=== PATIENT | male | born 1955 | race Two or more races ===

== ENCOUNTER 2024-01-29 17:08 | Inpatient (IN) | payer OTHER ==
[~2024-01-29] VITALS: Ht 165.1 cm; Wt 74.2 kg
[2024-01-29] MEDS ORDERED: methylPREDNISolone SOD SUCC 125 MG/2 ML VL IV ONE (18:00)
[2024-01-29] MEDS: IPRATROPIUM BROM 0.5 MG/2.5ML INH SOL NEB ONE (18:08)
[2024-01-29] MEDS: ALBUTEROL SULF 2.5 MG/0.5ML(0.5%) NEB SOLN NEB ONE ×2 (18:08→21:30)
[2024-01-29 18:28] LABS: Hematocrit 38.4 % (41.0-53.0); Hemoglobin 12.8 g/dL (13.5-17.5); Mean Corpuscular Hemoglobin 28.4 pg (28.0-32.0); Mean Corpuscular Hgb Conc. 33.3 g/dL (32.0-36.0); Mean Corpuscular Volume 85.4 fL (80.0-100.0); Red Cell Distribution Width 14.6 % (11.8-14.3); White Blood Cell 7.2 10^3/uL (4.4-10.8)
[2024-01-29 18:34] LABS: Basophils % (manual) 0 (0.0-2.0); Blast Cells 0; Metamyelocytes % 0; Myelocytes % 0; Promyelocytes % 0; Reactive Lymphocytes 0
[2024-01-29 18:51] LABS: Alanine Aminotransferase 23 U/L (7-40); Albumin 4.4 g/dL (3.2-4.8); Alkaline Phosphatase 85 U/L (46-116); Anion Gap 7 (5-15); Aspartate Aminotransferase 19 U/L (13-40); BUN/Creatinine Ratio 9.1 (10.0-20.0); Blood Urea Nitrogen 8 mg/dL (9-23); Calcium 9.6 mg/dL (8.5-10.1); Carbon Dioxide 23 mmol/L (20-30); Chloride 109 mmol/L (98-107); Glucose 98 mg/dL (74-106); Magnesium 2.1 mg/dL (1.6-2.6); Potassium 3.9 mmol/L (3.5-5.1); Sodium 139 mmol/L (136-145)
[2024-01-29 18:52] LABS: Bilirubin, Total 0.5 mg/dL (0.2-1.0); Total Protein 7.2 g/dL (5.7-8.2)
[2024-01-29] MEDS ORDERED: ALBU108A5 IN (20:19)
[2024-01-29] MEDS: methylPREDNISolone SOD SUCC 125 MG/2 ML VL IM ONE (20:21)
[2024-01-29 20:37] LABS: Band Neutrophils % (manual) 2; Lymphocytes % (manual) 21 (10.0-50.0)
[2024-01-29 20:38] LABS: Eosinophils % (manual) 23 (0-7); Monocytes % (manual) 4 (0-12); Platelet Estimate Adequate
[2024-01-29 21:34] LABS: Base Excess -4.4 mmol/L (-2.0-2.0)
[2024-01-29] MEDS ORDERED: ONDANSETRON HCL 4 MG/2 ML VIAL IV PRN (23:30)
[2024-01-29] MEDS ORDERED: MORPHINE SULFATE INJ 2 MG/ml SYRG IV PRN (23:30)
[2024-01-29] MEDS ORDERED: HYDROcodone-ACET 5/325MG TAB PO PRN (23:30)
[2024-01-29] MEDS ORDERED: ACETAMINOPHEN 325 MG TAB PO PRN (23:30)
[2024-01-29] MEDS ORDERED: DOCUSATE SOD 100 MG CAP PO PRN (23:30)
[2024-01-29] MEDS ORDERED: NITROGLYCERIN 0.4 MG SL TAB SL PRN (23:30)
[2024-01-30] VITALS (23 sets, daily range): BP systolic 102–163; BP diastolic 55–95; PULSE 86–104; RESP 16–20; TEMP 97.6–98.1; O2SAT 94–98
[2024-01-30] MEDS: SODIUM CHLORIDE 0.9% 1,000 ML IV SCH (00:41)
[2024-01-30] MEDS: ALBUTEROL SULF 2.5 MG/0.5ML(0.5%) NEB SOLN NEB SCH (01:42)
[2024-01-30] MEDS: IPRATROPIUM BROM 0.5 MG/2.5ML INH SOL NEB SCH (01:42)
[2024-01-30] MEDS ORDERED: hydrALAZINE HCL 20 MG/ML VL IV PRN (01:45)
[2024-01-30] MEDS: BUDESONIDE (INHALATION) 0.5 MG/2 ML NEB NEB SCH (09:24)
[2024-01-30] MEDS: PANTOPRAZOLE 40 MG/10 ML VIAL INJ IV SCH (10:05)
[2024-01-30] MEDS: methylPREDNISolone SOD SUCC 125 MG/2 ML VL IV SCH (10:05)
[2024-01-30] MEDS: ENOXAPARIN SOD 40 MG/0.4 ML SYRINGE SC SCH (10:05)
[2024-01-30 11:59] LABS: Chloride 108 mmol/L (98-107); Potassium 4.6 mmol/L (3.5-5.1); Sodium 138 mmol/L (136-145)
[2024-01-30 12:00] LABS: Anion Gap 6 (5-15); Calcium 9.6 mg/dL (8.5-10.1); Carbon Dioxide 24 mmol/L (20-30)
[2024-01-30 12:05] LABS: BUN/Creatinine Ratio 15.1 (10.0-20.0); Blood Urea Nitrogen 13 mg/dL (9-23); Glucose 179 mg/dL (74-106)
[2024-01-30 12:19] LABS: Basophils # (auto) 0 10 ^3/uL (0-0.2); Basophils % (auto) 0.1 % (0.0-2.0); Eosinophils # (auto) 0 10 ^3/uL (0-0.8); Hematocrit 37.5 % (41.0-53.0); Hemoglobin 12.8 g/dL (13.5-17.5); Lymphocytes # (auto) 0.8 10 ^3/uL (0.4-5.4); Lymphocytes % (auto) 10.1 % (10.0-50.0); Mean Corpuscular Hemoglobin 29.2 pg (28.0-32.0); Mean Corpuscular Hgb Conc. 34.2 g/dL (32.0-36.0); Mean Corpuscular Volume 85.4 fL (80.0-100.0); Monocytes # (auto) 0.1 10 ^3/uL (0-1.3); Monocytes % (auto) 1.7 % (0.0-12.0); Neutrophils # (auto) 6.8 10 ^3/uL (1.6-8.6); Neutrophils % (auto) 88.1 % (37.0-80.0); Red Blood Cells 4.39 10^6/uL (4.5-5.90); Red Cell Distribution Width 14.6 % (11.8-14.3); White Blood Cell 7.7 10^3/uL (4.4-10.8)
[2024-01-31] VITALS (20 sets, daily range): BP systolic 117–132; BP diastolic 76–87; PULSE 81–105; RESP 15–20; TEMP 97.4–98.1; O2SAT 91–100
[2024-01-31 06:00] LABS: Basophils # (auto) 0 10 ^3/uL (0-0.2); Basophils % (auto) 0.1 % (0.0-2.0); Eosinophils # (auto) 0 10 ^3/uL (0-0.8); Hematocrit 35.1 % (41.0-53.0); Hemoglobin 11.8 g/dL (13.5-17.5); Lymphocytes # (auto) 0.8 10 ^3/uL (0.4-5.4); Lymphocytes % (auto) 5.4 % (10.0-50.0); Mean Corpuscular Hemoglobin 28.9 pg (28.0-32.0); Mean Corpuscular Hgb Conc. 33.6 g/dL (32.0-36.0); Monocytes # (auto) 0.4 10 ^3/uL (0-1.3); Monocytes % (auto) 2.7 % (0.0-12.0); Neutrophils # (auto) 13.4 10 ^3/uL (1.6-8.6); Neutrophils % (auto) 91.8 % (37.0-80.0); Red Blood Cells 4.08 10^6/uL (4.5-5.90); Red Cell Distribution Width 14.7 % (11.8-14.3); White Blood Cell 14.6 10^3/uL (4.4-10.8)
[2024-01-31 06:17] LABS: Anion Gap 6 (5-15); Carbon Dioxide 24 mmol/L (20-30); Chloride 110 mmol/L (98-107); Potassium 4.3 mmol/L (3.5-5.1); Sodium 140 mmol/L (136-145)
[2024-01-31 06:18] LABS: Calcium 9.3 mg/dL (8.5-10.1)
[2024-01-31 06:23] LABS: BUN/Creatinine Ratio 15.6 (10.0-20.0); Blood Urea Nitrogen 15 mg/dL (9-23); Glucose 143 mg/dL (74-106)
[2024-01-31] MEDS: methylPREDNISolone SOD SUCC 125 MG/2 ML VL IV SCH (21:42)
[2024-02-01] VITALS (13 sets, daily range): BP systolic 105–137; BP diastolic 5–91; PULSE 60–111; RESP 16–20; TEMP 97.8–98.6; O2SAT 93–100
[2024-02-01 06:47] LABS: Chloride 109 mmol/L (98-107); Potassium 3.9 mmol/L (3.5-5.1); Sodium 139 mmol/L (136-145)
[2024-02-01 06:49] LABS: Anion Gap 4 (5-15); Calcium 9.3 mg/dL (8.5-10.1); Carbon Dioxide 26 mmol/L (20-30)
[2024-02-01 06:54] LABS: BUN/Creatinine Ratio 20.5 (10.0-20.0); Blood Urea Nitrogen 18 mg/dL (9-23); Glucose 141 mg/dL (74-106)
[2024-02-01 07:09] LABS: Basophils # (auto) 0 10 ^3/uL (0-0.2); Basophils % (auto) 0.1 % (0.0-2.0); Eosinophils # (auto) 0 10 ^3/uL (0-0.8); Hematocrit 35.1 % (41.0-53.0); Hemoglobin 11.8 g/dL (13.5-17.5); Lymphocytes # (auto) 0.7 10 ^3/uL (0.4-5.4); Lymphocytes % (auto) 5.6 % (10.0-50.0); Mean Corpuscular Hemoglobin 28.9 pg (28.0-32.0); Mean Corpuscular Hgb Conc. 33.5 g/dL (32.0-36.0); Mean Corpuscular Volume 86.1 fL (80.0-100.0); Monocytes # (auto) 0.3 10 ^3/uL (0-1.3); Monocytes % (auto) 2.5 % (0.0-12.0); Neutrophils # (auto) 10.8 10 ^3/uL (1.6-8.6); Neutrophils % (auto) 91.8 % (37.0-80.0); Red Blood Cells 4.08 10^6/uL (4.5-5.90); Red Cell Distribution Width 14.5 % (11.8-14.3); White Blood Cell 11.7 10^3/uL (4.4-10.8)
[2024-02-01] MEDS ORDERED: ALBU108A5 IN (16:19)
[2024-02-01] MEDS ORDERED: ALBU1NEB5 IN (16:19)
[2024-02-01] MEDS ORDERED: IPRA0.03 (16:19)
[2024-02-01] MEDS ORDERED: METH4PAK PO (16:19)
== END 2024-02-01 17:20 | disposition home or self-care (01) | DRG 189 ==
LOC: ER 17:08 → TELE 23:36 → TELE-E-ADS 01-30 02:11
PROVIDERS: ADMIT Nurse Practitioner Family; ATTEND Internal Medicine
DX: J96.01 Acute respiratory failure with hypoxia (principal); J45.901 Unspecified asthma with (acute) exacerbation; J44.1 Chronic obstructive pulmonary disease with (acute) exacerbation; E87.20 Acidosis, unspecified; T38.0X5A Adverse effect of glucocorticoids and synthetic analogues, initial encounter; Y92.89 Other specified places as the place of occurrence of the external cause; R73.9 Hyperglycemia, unspecified
CPT/HCPCS: 36415; 36600; 71045; 80048; 80053; 82805; 83735; 83880; 84484; 85007; 85025; 85027; 93005; 94640; C9113; G0378

== ENCOUNTER 2024-02-23 22:07 | Observation (INO) | payer OTHER ==
[~2024-02-23] VITALS: Ht 165.1 cm; Wt 72.3 kg
[~2024-02-23 22:07] MED LIST: ALBU108A5 IN; ALBU1NEB5 IN; IPRA0.03; METH4PAK PO
[2024-02-23] MEDS: ALBUTEROL SULF 2.5 MG/0.5ML(0.5%) NEB SOLN NEB ONE (22:33)
[2024-02-23] MEDS: IPRATROPIUM BROM 0.5 MG/2.5ML INH SOL NEB ONE (22:34)
[2024-02-23 22:51] LABS: Hematocrit 38.4 % (41.0-53.0); Hemoglobin 13.3 g/dL (13.5-17.5); Mean Corpuscular Hemoglobin 29.3 pg (28.0-32.0); Mean Corpuscular Hgb Conc. 34.6 g/dL (32.0-36.0); Mean Corpuscular Volume 84.8 fL (80.0-100.0); Red Blood Cells 4.52 10^6/uL (4.5-5.90); Red Cell Distribution Width 14.4 % (11.8-14.3); White Blood Cell 8.9 10^3/uL (4.4-10.8)
[2024-02-23 22:54] LABS: Basophils % (manual) 0 (0.0-2.0); Blast Cells 0; Metamyelocytes % 0; Myelocytes % 0; Promyelocytes % 0; Reactive Lymphocytes 0
[2024-02-23 23:04] LABS: Alanine Aminotransferase 23 U/L (7-40); Albumin 4.4 g/dL (3.2-4.8); Alkaline Phosphatase 86 U/L (46-116); Anion Gap 7 (5-15); Aspartate Aminotransferase 17 U/L (13-40); Bilirubin, Total 0.3 mg/dL (0.2-1.0); Blood Urea Nitrogen 9 mg/dL (9-23); Calcium 9.8 mg/dL (8.7-10.4); Carbon Dioxide 24 mmol/L (20-30); Chloride 111 mmol/L (98-107); Glucose 104 mg/dL (74-106); Magnesium 2.1 mg/dL (1.6-2.6); Potassium 3.9 mmol/L (3.5-5.1); Sodium 142 mmol/L (136-145); Total Protein 7.2 g/dL (5.7-8.2)
[2024-02-23 23:21] LABS: BUN/Creatinine Ratio 8.7 (10.0-20.0)
[2024-02-23 23:50] LABS: Band Neutrophils % (manual) 2; Eosinophils % (manual) 22 (0-7); Lymphocytes % (manual) 29 (10.0-50.0); Monocytes % (manual) 8 (0-12); Platelet Estimate Adequate
[2024-02-24] VITALS (10 sets, daily range): BP systolic 129–144; BP diastolic 82–94; PULSE 90–110; RESP 18–24; TEMP 98.5–98.8; O2SAT 93–100
[2024-02-24] MEDS: methylPREDNISolone SOD SUCC 125 MG/2 ML VL IV ONE (00:41)
[2024-02-24] MEDS ORDERED: methylPREDNISolone SOD SUCC 125 MG/2 ML VL IV ONE (03:45)
[2024-02-24] MEDS ORDERED: ONDANSETRON HCL 4 MG/2 ML VIAL IV PRN (04:00)
[2024-02-24] MEDS ORDERED: ACETAMINOPHEN 325 MG TAB PO PRN (04:00)
[2024-02-24] MEDS: ALBUTEROL SULF 2.5 MG/0.5ML(0.5%) NEB SOLN NEB ONE (04:00)
[2024-02-24] MEDS: cefTRIAXone 1GM/50ML D5W 50 ML IV ONE ×2 (06:10→06:19)
[2024-02-24] MEDS: IPRATROPIUM BROM 0.5 MG/2.5ML INH SOL NEB SCH (06:31)
[2024-02-24 08:50] LABS: COVID19 ANTIGEN SOFIA FIA NEGATIVE (NEGATIVE); Rapid Influenza A Negative (Negative); Rapid Influenza B Negative (Negative)
[2024-02-24] MEDS ORDERED: METH4PAK PO (09:43)
[2024-02-24] MEDS ORDERED: ALBU1NEB5 IN (09:43)
[2024-02-24] MEDS ORDERED: IPRA0.03 (09:43)
[2024-02-24] MEDS ORDERED: ALBU108A5 IN (09:43)
[2024-02-24] MEDS ORDERED: FLUT100M IN (09:43)
[2024-02-24] MEDS: PANTOPRAZOLE 40 MG/10 ML VIAL INJ IV SCH (11:00)
[2024-02-24] MEDS: ENOXAPARIN SOD 40 MG/0.4 ML SYRINGE SC SCH (12:58)
[2024-02-24] MEDS ORDERED: IOHEXOL 350 MG/ML 100ML IJ ONE (13:11)
[2024-02-24] MEDS: methylPREDNISolone SOD SUCC 125 MG/2 ML VL IV SCH (14:00)
[2024-02-25] MEDS ORDERED: methylPREDNISolone SOD SUCC 40 MG/ML VL IV SCH (06:00)
== END 2024-02-24 17:23 | disposition home or self-care (01) ==
LOC: ER 22:07 → TELE 02-24 04:00
PROVIDERS: ADMIT Nurse Practitioner Family; ATTEND Internal Medicine
DX: J45.901 Unspecified asthma with (acute) exacerbation (principal); Z20.822 Contact with and (suspected) exposure to COVID-19; J96.01 Acute respiratory failure with hypoxia; Z87.891 Personal history of nicotine dependence; Z79.899 Other long term (current) drug therapy
CPT/HCPCS: 36415; 71045; 71275; 80053; 83735; 83880; 84484; 85007; 85027; 87426; 87804; 93005; 94640; 96365; 96372; 96375; 96376; 99291; G0378; J0696; J1650; J2919; J7644; Q9967; J2470

== ENCOUNTER 2024-06-19 12:06 | Inpatient (IN) | payer OTHER ==
[~2024-06-19] VITALS: Ht 162.6 cm; Wt 74.5 kg
[2024-06-19] VITALS (8 sets, daily range): BP systolic 123–133; BP diastolic 79–86; PULSE 18–103; RESP 17–96; TEMP 97.6–98; O2SAT 95–100
[~2024-06-19 12:06] MED LIST changes: +FLUT100M IN
--- NOTE | 2024-06-19 13:04 | DVH ---
EXAM: XY CHEST PORTABLE TECHNIQUE: Single frontal chest radiograph CLINICAL HISTORY: sob COMPARISON: XY CHEST PORTABLE on DOS: 02/23/24, XY CHEST PORTABLE on DOS: 01/29/24 Findings/Impression: Frontal chest radiograph demonstrates no acute osseous or superficial soft tissue abnormalities. The trachea is midline. The cardiac silhouette and mediastinum are within normal limits. No pneumothorax, pleural effusions, or consolidations.
[2024-06-19] MEDS: ASPirin 325 MG TAB PO ONE (13:25)
[2024-06-19 13:26] LABS: Hematocrit 38.4 % (41.0-53.0); Hemoglobin 13.3 g/dL (13.5-17.5); Mean Corpuscular Hemoglobin 29.1 pg (28.0-32.0); Mean Corpuscular Hgb Conc. 34.5 g/dL (32.0-36.0); Mean Corpuscular Volume 84.5 fL (80.0-100.0); Platelet Count (auto) 347 10^3/uL (140-450); Red Blood Cells 4.55 10^6/uL (4.5-5.90); Red Cell Distribution Width 14.6 % (11.8-14.3); White Blood Cell 6.5 10^3/uL (4.4-10.8)
--- NOTE | 2024-06-19 13:27 | ED.PDOC ---
SOB-HPI HPI Comments 68 y.o male with PMH of asthma, presents to the ED for a chief complaint of SOB associated with exertional substernal chest discomfort that started one week ago. Patient reports using his albuterol/medication this past week but has had no relief. Upon ED arrival, patient's SPO2 read 100% on room air. Patient denies any cough, fever, chills, nausea, vomiting, abdominal pain. No allergies reported. Chief Complaint: Shortness of Breath Time Seen by MD: 13:19 Primary Care Provider: EDUARDO Reviewed notes: Nurses Notes, Medications, Allergies Information Source: Patient Mode of Arrival: Ambulatory Severity: Moderate Timing: Weeks (1) Duration: Since onset Context: At Rest PE Risk Factors: None History of: Asthma Modifying Factors: Nothing Associated Signs and Symptoms: Chest Pain Quality: Aching Radiation: No Radiation Location: Substernal If cough with SOB: Productive Past Medical History PAST MEDICAL HISTORY: Asthma Surgical History: Denies all surgeries Family History Family History: Unknown Social History Smoker: Non-Smoker Alcohol: Denies ETOH Use Drugs: Denies Drug Use Lives In: Home Constitutional: denies: chills, diaphoresis, fatigue, fever, malaise, sweats, weakness, others EENTM: denies: blurred vision, double vision, ear bleeding, ear discharge, ear drainage, ear pain, ear ringing, eye pain, eye redness, hearing loss, mouth pain, mouth swelling, nasal discharge, nose bleeding, nose congestion, nose pain, photophobia, tearing, throat pain, throat swelling, voice changes, others Respiratory: reports: SOB at rest, shortness of breath, SOB with excertion; denies: cough, hemoptysis, orthopnea, stridor, wheezing, others Cardiovascular: reports: chest pain; denies: dizzy spells, diaphoresis, Dyspnea on exertion, edema, irregular heart beat, left arm pain, lightheadedness, palpitations, PND, syncope, others Gastrointestinal: denies: abdomen distended, abdominal pain, blood streaked bowels, constipated, diarrhea, dysphagia, difficulty swallowing, hematemesis, melena, nausea, poor appetite, poor fluid intake, rectal bleeding, rectal pain, vomiting, others Genitourinary: denies: burning, dysuria, flank pain, frequency, hematuria, incontinence, penile discharge, penile sore, pain, testicle pain, testicle swelling, urgency, others Neurological: denies: dizziness, fainting, headache, left sided numbness, left sided weakness, numbness, paresthesia, pre-existing deficit, right sided numbness, right sided weakness, seizure, speech problems, tingling, tremors, weakness, others Musculoskeletal: denies: back pain, gout, joint pain, joint swelling, muscle pain, muscle stiffness, neck pain, others Integumetry: denies: bruises, change in color, change in hair/nails, dryness, laceration, lesions, lumps, rash, wounds, others Allergic/Immunocompromised: denies: Difficulty Healing, Frequent Infections, Hives, Itching, others Hematologic/Lymphatic: denies: anemia, blood clots, easy bleeding, easy bruising, swollen glands, others Endocrine: denies: excessive hunger, excessive sweating, excessive thirst, excessive urination, flushing, intolerance to cold, intolerance to heat, unexplained weight gain, unexplained weight loss, others Psychiatric: denies: anxiety, bipolar disorder, depression, hopeless, panic disorder, schizophrenia, sleepless, suicidal, others All Other Systems: Reviewed and Negative Physical Exam General Appearance: No Apparent Distress HEENT: Normal ENT Inspection Neck: Full Range of Motion, Normal Inspection Respiratory: Decreased Breath Sounds, No Accessory Muscle Use, No Respiratory Distress, Wheezing Cardiovascular: Irregular, No Edema, No JVD Breast Exam: Deferred Gastrointestinal: Non Tender, Soft Genitalia: Deferred Pelvic: Deferred Rectal: Deferred Extremities: Normal inspection, Normal range of motion, Non-tender, No pedal edema Neurologic: Alert, No Motor Deficits, Normal Affect, Normal Mood, No Sensory Deficits Cerebellar Function: NOT DONE Reflexes: NOT DONE Skin: Dry, Normal Color, Warm Lymphatic: NOT DONE EKG EKG : Comments Sinus tach, rate 103, normal intervals, normal axis, normal QRS, nonspecific T changes. Was a procedure done? Was a procedure done?: No Differential Dx Differential Diagnosis: Asthma, Bronchitis, CHF, COPD, Pneumonia, Respiratory Distress, URI Comments ACS, PR, among others X-Ray, Labs, Meds, VS Vital Signs Date Time Temp Pulse Resp B/P (MAP) Pulse Ox O2 Delivery O2 Flow Rate FiO2 06/19/24 13:42 18 98 Room Air* 0 21 06/19/24 13:26 96 16 95 Room Air 06/19/24 13:26 98.0 96 16 133/86 (102) 95 98.0 06/19/24 12:31 103 06/19/24 12:30 18 100 Room Air* 0 21 06/19/24 12:10 98.8 111 18 132/97 (109) 100 Lab Test 06/19/24 13:50 06/19/24 12:47 Range/Units Troponin I High Sensitivity Pending 3 L </=54 ng/L White Blood Count 6.5 4.4-10.8 10^3/uL Red Blood Count 4.55 4.5-5.90 10^6/uL Hemoglobin 13.3 L 13.5-17.5 g/dL Hematocrit 38.4 L 41.0-53.0 % Mean Corpuscular Volume 84.5 80.0-100.0 fL Mean Corpuscular Hemoglobin 29.1 28.0-32.0 pg Mean Corpuscular Hemoglobin Concent 34.5 32.0-36.0 g/dL Red Cell Distribution Width 14.6 H 11.8-14.3 % Platelet Count 347 140-450 10^3/uL Mean Platelet Volume 8.5 6.9-10.8 fL Neutrophils (%) (Auto) 37.0-80.0 % Lymphocytes (%) (Auto) 10.0-50.0 % Monocytes (%) (Auto) 0.0-12.0 % Basophils (%) (Auto) 0.0-2.0 % Neutrophils # (Auto) 1.6-8.6 10 ^3/uL Lymphocytes # (Auto) 0.4-5.4 10 ^3/uL Monocytes # (Auto) 0-1.3 10 ^3/uL Differential Total Cells Counted Pending Neutrophils % (Manual) Pending Band Neutrophils % (Manual) Pending Lymphocytes % (Manual) Pending Monocytes % (Manual) Pending Eosinophils % (Manual) Pending Basophils % (Manual) Pending Metamyelocytes % (manual) Pending Myelocytes % (Manual) Pending Promyelocytes % (Manual) Pending Blast Cells % (Manual) Pending Reactive Lymphocytes Pending Platelet Estimate Pending Sodium Level 142 136-145 mmol/L Potassium Level 4.7 3.5-5.1 mmol/L Chloride Level 108 H 98-107 mmol/L Carbon Dioxide Level 27 20-31 mmol/L Anion Gap 7 5-15 Blood Urea Nitrogen 9 9-23 mg/dL Creatinine 1.05 0.700-1.30 mg/dL Glomerular Filtration Rate Calc 78 >90 mL/min BUN/Creatinine Ratio 8.6 L 10.0-20.0 Serum Glucose 98 74-106 mg/dL Calcium Level 10.2 8.7-10.4 mg/dL B-Type Natriuretic Peptide Pending Current Medications Medications (Trade) Dose Ordered Sig/Emmanuel Route Start Time Stop Time Status Last Admin Ipratropium [place] (Atrovent Medneb) 0.5 mg ONCE ONCE NEB 06/19/24 13:30 06/19/24 13:31 DC 06/19/24 13:42 Methylprednisolone Sodium Succinate (Solu Medrol) 125 mg ONCE ONCE IV 06/19/24 13:30 06/19/24 13:31 DC 06/19/24 13:29 Aspirin 325 mg ONCE ONCE PO 06/19/24 13:30 06/19/24 13:31 DC 06/19/24 13:25 PROCEDURE(s): CXRP - CHEST PORTABLE REASON: sob ORDER NUMBER(s): [id number], ACCESSION NUMBER(s): [id number] EXAM: XY CHEST PORTABLE TECHNIQUE: Single frontal chest radiograph CLINICAL HISTORY: sob COMPARISON: XY CHEST PORTABLE on DOS: 02/23/24, XY CHEST PORTABLE on DOS: 01/29/24 Findings/Impression: Frontal chest radiograph demonstrates no acute osseous or superficial soft tiss ue abnormalities. The trachea is midline. The cardiac silhouette and mediastinum are within normal limits. No pneumothorax, pleural effusions, or consolidations. ATED BY: LETA NAVARRO DO X-Ray, Labs, Meds, VS Comment 68-year-old male with a history of asthma presenting with shortness of breath despite using home nebulizer, associated with exertional retrosternal pressure- like chest pain. Vitals remarkable for heart rate 111, BP 132/97 EKG sinus tach, nonspecific T changes Chest x-ray unremarkable Patient treated with the following in the ED: Xopenex 1.25 mg/Atrovent 0.5 mg nebulized, Solu-Medrol 125 mg IV, aspirin 325 mg p.o. On re-evaluation, patient's symptoms have somewhat improved. Vitals were stable. Heart score is 5. Plan is to admit the patient for respiratory support as needed and for Cardiology evaluation. Time of 1ST Reevaluation: 13:24 Reevaluation 1ST: Unchanged Time of 2ND Reevaluation: 13:57 Reevaluation 2ND: Improved Patient Education/Counseling: Diagnosis, Treatment, Prognosis Family Education/Counseling: No Family Present Departure 1 Departure Time of Disposition: 13:57 Impression: Primary Impression: Acute asthma exacerbation Qualified Codes: J45.41 - Moderate persistent asthma with (acute) exacerbation Additional Impression: Acute chest pain Disposition: ADMITTED INPATIENT Admit to: Tele Condition: Guarded Critical Care Note Critical Care Time?: No Stability Stability form required: No Heart Score Heart Score: Heart Score Response (Comments) Value History Highly Suspicious 2 EKG Repolarization Disturb 1 Age >65 2 Risk Factors No known risk factors 0 Troponin Normal limit 0 Total 5 I personally scribed for JAYCEE CUNHA MD ([facility]) on 06/19/24 at 13:27. Electronically submitted by Suyapa Gutiérrez ([facility]). JAYCEE CUNHA MD Jun 19, 2024 13:27
[2024-06-19 13:28] LABS: Basophils % (manual) 0 (0.0-2.0); Blast Cells 0; Metamyelocytes % 0; Myelocytes % 0; Promyelocytes % 0; Reactive Lymphocytes 0
[2024-06-19] MEDS: methylPREDNISolone SOD SUCC 125 MG/2 ML VL IV ONE (13:29)
[2024-06-19] MEDS: IPRATROPIUM BROM 0.5 MG/2.5ML INH SOL NEB ONE (13:42)
[2024-06-19 13:47] LABS: Chloride 108 mmol/L (98-107); Potassium 4.7 mmol/L (3.5-5.1); Sodium 142 mmol/L (136-145)
[2024-06-19 13:48] LABS: Anion Gap 7 (5-15); Calcium 10.2 mg/dL (8.7-10.4); Carbon Dioxide 27 mmol/L (20-31)
[2024-06-19 13:53] LABS: BUN/Creatinine Ratio 8.6 (10.0-20.0); Blood Urea Nitrogen 9 mg/dL (9-23); Glucose 98 mg/dL (74-106)
[2024-06-19 14:03] LABS: Band Neutrophils % (manual) 2; Eosinophils % (manual) 19 (0-7); Lymphocytes % (manual) 21 (10.0-50.0); Monocytes % (manual) 4 (0-12); Platelet Estimate Adequate
[2024-06-19] MEDS ORDERED: HYDROcodone-ACET 5/325MG TAB PO PRN (17:15)
[2024-06-19] MEDS ORDERED: ACETAMINOPHEN 325 MG TAB PO PRN (17:15)
[2024-06-19] MEDS ORDERED: ONDANSETRON HCL 4 MG/2 ML VIAL IV PRN (17:15)
[2024-06-19] MEDS ORDERED: DOCUSATE SOD 100 MG CAP PO PRN (17:15)
--- NOTE | 2024-06-19 17:16 | DVHHP2 ---
History of Present Illness Reason for Visit: Shortness of breaths and wheezing History of Present Illness 68-year-old male with a known history of chronic asthma currently on inhalers and nebulizer initially presented to hospital with the increasing shortness a breath and wheezing found to have acute asthma exacerbation. Patient denies any fevers chills denies any cough or phlegm. Patient denies any recent sick contacts. Denies any hematemesis hematochezia melena dysuria hematuria. Pulmonary: Asthma, Bronchitis Past Surgical History: None Review of Systems Review of Systems Twelve review of system are negative besides mentioned above. Allergies: Coded Allergies: NO KNOWN ALLERGIES (Unverified , 01/29/24) Medications Current Medications Medications Dose Ordered Sig/Emmanuel Route Start Time Stop Time Status Last Admin Dose Admin Levalbuterol HCl 1.25 mg Q6HR NEB 06/19/24 18:00 Acetaminophen/ Hydrocodone Bitart 1 tab Q4HP PRN PO 06/19/24 17:15 UNV Ondansetron HCl 4 mg Q4HP PRN IV 06/19/24 17:15 UNV Docusate Sodium 100 mg BIDPRN PRN PO 06/19/24 17:15 UNV Enoxaparin Sodium 40 mg DAILY SC 06/20/24 10:00 UNV Acetaminophen 650 mg Q6HP PRN PO 06/19/24 17:15 UNV Methylprednisolone Sodium Succinate 60 mg Q8HR IV 06/19/24 22:00 UNV Pantoprazole Sodium 40 mg DAILY@0600 PO 06/20/24 06:00 UNV Albuterol 2.5 mg Q4HWA NEB 06/19/24 18:00 UNV Ipratropium [place] 0.5 mg Q4HWA NEB 06/19/24 18:00 UNV Exam Vital Signs Vital Signs Date Time Temp Pulse Resp B/P (MAP) Pulse Ox O2 Delivery O2 Flow Rate FiO2 06/19/24 15:39 98.0 85 18 141/88 (105) 96 98.0 06/19/24 13:46 0.0 21 06/19/24 13:42 Room Air* Exam HEENT pupils are reactive Neck is supple CV is S1-S2 regular rate and rhythm Respiratory bilateral expiratory rhonchi GI positive bowel sound 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 Labs/Xrays Labs Test 06/19/24 13:50 06/19/24 12:47 Range/Units Troponin I High Sensitivity < 3 L </=54 ng/L White Blood Count 6.5 4.4-10.8 10^3/uL Red Blood Count 4.55 4.5-5.90 10^6/uL Hemoglobin 13.3 L 13.5-17.5 g/dL Hematocrit 38.4 L 41.0-53.0 % Mean Corpuscular Volume 84.5 80.0-100.0 fL Mean Corpuscular Hemoglobin 29.1 28.0-32.0 pg Mean Corpuscular Hemoglobin Concent 34.5 32.0-36.0 g/dL Red Cell Distribution Width 14.6 H 11.8-14.3 % Platelet Count 347 140-450 10^3/uL Mean Platelet Volume 8.5 6.9-10.8 fL Neutrophils (%) (Auto) 37.0-80.0 % Lymphocytes (%) (Auto) 10.0-50.0 % Monocytes (%) (Auto) 0.0-12.0 % Basophils (%) (Auto) 0.0-2.0 % Neutrophils # (Auto) 1.6-8.6 10 ^3/uL Lymphocytes # (Auto) 0.4-5.4 10 ^3/uL Monocytes # (Auto) 0-1.3 10 ^3/uL Differential Total Cells Counted 100.0 100 Neutrophils % (Manual) 54 37.0-80.0 Band Neutrophils % (Manual) 2 Lymphocytes % (Manual) 21 10.0-50.0 Monocytes % (Manual) 4 0-12 Eosinophils % (Manual) 19 H 0-7 Basophils % (Manual) 0 0.0-2.0 Metamyelocytes % (manual) 0 Myelocytes % (Manual) 0 Promyelocytes % (Manual) 0 Blast Cells % (Manual) 0 Reactive Lymphocytes 0 Platelet Estimate Adequate Sodium Level 142 136-145 mmol/L Potassium Level 4.7 3.5-5.1 mmol/L Chloride Level 108 H 98-107 mmol/L Carbon Dioxide Level 27 20-31 mmol/L Anion Gap 7 5-15 Blood Urea Nitrogen 9 9-23 mg/dL Creatinine 1.05 0.700-1.30 mg/dL Glomerular Filtration Rate Calc 78 >90 mL/min BUN/Creatinine Ratio 8.6 L 10.0-20.0 Serum Glucose 98 74-106 mg/dL Calcium Level 10.2 8.7-10.4 mg/dL B-Type Natriuretic Peptide 2.94 0-100 pg/mL Assessment/Plan Assessment/Plan 68-year-old male with a known history of chronic asthma initially presented to the hospital with the increasing shortness a breath and wheezing found to have 1. Acute asthma exacerbation 2. Chronic asthma -admit to med surge, med nebs, budesonide, IV Solu-Medrol, O2 supplementation if needed. Plan discussed with: Patient My Orders Orders - LAUREL STEPHENS MD Procedure Category Date Status Time Admit ADMIT 06/19/24 Transmitted 17:08 Code Status CODE 06/19/24 Transmitted 17:08 Hydrocodone-Acet PHA 06/19/24 Logged 5/325mg Tab ([place] 17:15 Ondansetron Hcl PHA 06/19/24 Logged (Zofran) 17:15 Docusate Sodium PHA 06/19/24 Logged Capsule (Colace 17:15 Enoxaparin Sodium PHA 06/20/24 Logged (Lovenox) 10:00 Condition: Fair MIGUEL ANGEL 06/19/24 In Process 17:08 Acetaminophen Tablet PHA 06/19/24 Logged (Tylenol Tablet) 17:15 Methylprednisolone PHA 06/19/24 Logged Sod Succ (Solu Medrol 22:00 Pantoprazole Tablet PHA 06/20/24 Logged (Protonix Tablet) 06:00 Albuterol Medneb PHA 06/19/24 Transmitted (Ventolin Medneb) 18:00 Ipratropium Medneb PHA 06/19/24 Transmitted (Atrovent Medneb) 18:00 Date of Service: Jun 19, 2024 Billing Provider: LAUREL STEPHENS MD Common Visit Codes: NOT BILLABLE LAUREL STEPHENS MD Jun 19, 2024 17:16
[2024-06-19] MEDS ORDERED: LEVALBUTEROL HCL 1.25 MG/3 ML NEB NEB SCH (18:00)
[2024-06-19] MEDS: BUDESONIDE (INHALATION) 0.5 MG/2 ML NEB NEB SCH (19:34)
[2024-06-19] MEDS: ALBUTEROL SULF 2.5 MG/0.5ML(0.5%) NEB SOLN NEB SCH (19:34)
[2024-06-19] MEDS: IPRATROPIUM BROM 0.5 MG/2.5ML INH SOL NEB SCH (19:34)
[2024-06-19] MEDS ORDERED: ALBUAER3 PO (20:24)
[2024-06-19] MEDS: methylPREDNISolone SOD SUCC 125 MG/2 ML VL IV SCH (21:23)
[2024-06-20] VITALS (19 sets, daily range): BP systolic 107–135; BP diastolic 69–87; PULSE 94–111; RESP 16–18; TEMP 97.2–98.1; O2SAT 92–100
[2024-06-20] MEDS: PANTOPRAZOLE 40 MG TAB PO SCH (05:07)
[2024-06-20] MEDS: ENOXAPARIN SOD 40 MG/0.4 ML SYRINGE SC SCH (08:52)
--- NOTE | 2024-06-20 16:10 | DVHPN2 ---
Subjective Overnight events noted. Patient feeling little better. 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 Medications Current Medications Medications Dose Ordered Sig/Emmanuel Route Start Time Stop Time Status Last Admin Dose Admin Levalbuterol HCl 1.25 mg Q6HR NEB 06/19/24 18:00 Cancel Acetaminophen/ Hydrocodone Bitart 1 tab Q4HP PRN PO 06/19/24 17:15 Ondansetron HCl 4 mg Q4HP PRN IV 06/19/24 17:15 Docusate Sodium 100 mg BIDPRN PRN PO 06/19/24 17:15 Enoxaparin Sodium 40 mg DAILY SC 06/20/24 10:00 06/20/24 08:52 40 MG Acetaminophen 650 mg Q6HP PRN PO 06/19/24 17:15 Methylprednisolone Sodium Succinate 60 mg Q8HR IV 06/19/24 22:00 06/20/24 14:31 60 MG Pantoprazole Sodium 40 mg DAILY@0600 PO 06/20/24 06:00 06/20/24 05:07 40 MG Albuterol 2.5 mg Q4HWA NEB 06/19/24 18:00 06/20/24 14:56 2.5 MG Ipratropium [place] 0.5 mg Q4HWA NEB 06/19/24 18:00 06/20/24 14:56 0.5 MG Budesonide 0.5 mg BID NEB 06/19/24 22:00 06/20/24 06:41 0.5 MG Laboratory Results Laboratory Tests 06/19/24 12:47 Assessment/Plan Assessment/Plan 68-year-old male with a known history of chronic asthma initially presented to the hospital with the increasing shortness a breath and wheezing found to have 1. Acute asthma exacerbation 2. Chronic asthma -, med nebs, budesonide, IV Solu-Medrol, O2 supplementation if needed. Plan discussed with: Patient My Orders Orders - LAUREL STEPHENS MD Procedure Category Date Status Time Admit ADMIT 06/19/24 Transmitted 17:08 Code Status CODE 06/19/24 Transmitted 17:08 Hydrocodone-Acet PHA 06/19/24 In Process 5/325mg Tab ([place] 17:15 Ondansetron Hcl PHA 06/19/24 In Process (Zofran) 17:15 Docusate Sodium PHA 06/19/24 In Process Capsule (Colace 17:15 Enoxaparin Sodium PHA 06/20/24 In Process (Lovenox) 10:00 Condition: Fair MIGUEL ANGEL 06/19/24 In Process 17:08 Acetaminophen Tablet PHA 06/19/24 In Process (Tylenol Tablet) 17:15 Methylprednisolone PHA 06/19/24 In Process Sod Succ (Solu Medrol 22:00 Pantoprazole Tablet PHA 06/20/24 In Process (Protonix Tablet) 06:00 Albuterol Medneb PHA 06/19/24 In Process (Ventolin Medneb) 18:00 Ipratropium Medneb PHA 06/19/24 In Process (Atrovent Medneb) 18:00 Budesonide PHA 06/19/24 In Process (Inhalation) 22:00 Regular Diet DIET 06/20/24 Transmitted Breakfast Date of Service: Jun 20, 2024 Billing Provider: LAUREL STEPHENS MD Common Visit Codes: NOT BILLABLE LAUREL STEPHENS MD Jun 20, 2024 16:09
[2024-06-21] VITALS (16 sets, daily range): BP systolic 111–133; BP diastolic 69–84; PULSE 93–109; RESP 16–20; TEMP 97.7–98.2; O2SAT 92–100
--- NOTE | 2024-06-21 13:41 | ECG ---
[facility] Test Date: 2024-06-19 Test Time: 12:31:58 Pat Name: SUZETTE POP Department: ER Room: 0280 Gender: M Helper Animal Laboratory: ABELARDO : 1955 Requested By: JAYCEE YI Order Number: [id number] Reading MD: Measurements Intervals [place] Rate: 103 P: 0 WI: 0 QRS: 84 QRSD: 97 T: 44 QT: 339 QTc: 444 Interpretive Statements Atrial fibrillation Ventricular premature complex Borderline right axis deviation Please click the below link to view image of tracing.
[2024-06-21] MEDS: guaiFENesin 200 MG/10 ML UD PO PRN (16:07)
--- NOTE | 2024-06-21 16:31 | DVHPN2 ---
Subjective Overnight events noted. Patient feeling little better. 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 Medications Current Medications Medications Dose Ordered Sig/Emmanuel Route Start Time Stop Time Status Last Admin Dose Admin Levalbuterol HCl 1.25 mg Q6HR NEB 06/19/24 18:00 Cancel Acetaminophen/ Hydrocodone Bitart 1 tab Q4HP PRN PO 06/19/24 17:15 Ondansetron HCl 4 mg Q4HP PRN IV 06/19/24 17:15 Docusate Sodium 100 mg BIDPRN PRN PO 06/19/24 17:15 Enoxaparin Sodium 40 mg DAILY SC 06/20/24 10:00 06/21/24 09:44 40 MG Acetaminophen 650 mg Q6HP PRN PO 06/19/24 17:15 Methylprednisolone Sodium Succinate 60 mg Q8HR IV 06/19/24 22:00 06/21/24 16:00 60 MG Pantoprazole Sodium 40 mg DAILY@0600 PO 06/20/24 06:00 06/21/24 05:07 40 MG Albuterol 2.5 mg Q4HWA NEB 06/19/24 18:00 06/21/24 14:11 2.5 MG Ipratropium [place] 0.5 mg Q4HWA NEB 06/19/24 18:00 06/21/24 14:11 0.5 MG Budesonide 0.5 mg BID NEB 06/19/24 22:00 06/21/24 06:44 0.5 MG Guaifenesin 200 mg Q4HP PRN PO 06/21/24 16:15 06/21/24 16:07 200 MG Laboratory Results Laboratory Tests 06/19/24 12:47 Assessment/Plan Assessment/Plan 68-year-old male with a known history of chronic asthma initially presented to the hospital with the increasing shortness a breath and wheezing found to have 1. Acute asthma exacerbation 2. Chronic asthma -, med nebs, budesonide, IV Solu-Medrol, O2 supplementation if needed. Plan discussed with: Patient My Orders Orders - LAUREL STEPHENS MD Procedure Category Date Status Time Guaifenesin Plain PHA 06/21/24 In Process Liquid (Robitussin Bc 16:15 Date of Service: Jun 21, 2024 Billing Provider: LAUREL STEPHENS MD Common Visit Codes: NOT BILLABLE LAUREL STEPHENS MD Jun 21, 2024 16:30
[2024-06-22] VITALS (19 sets, daily range): BP systolic 121–143; BP diastolic 79–95; PULSE 90–102; RESP 16–20; TEMP 97.4–98.3; O2SAT 92–100
--- NOTE | 2024-06-22 19:27 | DVHPN2 ---
Subjective Overnight events noted. Patient feeling little better. 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 Medications Current Medications Medications Dose Ordered Sig/Emmanuel Route Start Time Stop Time Status Last Admin Dose Admin Levalbuterol HCl 1.25 mg Q6HR NEB 06/19/24 18:00 Cancel Acetaminophen/ Hydrocodone Bitart 1 tab Q4HP PRN PO 06/19/24 17:15 Ondansetron HCl 4 mg Q4HP PRN IV 06/19/24 17:15 Docusate Sodium 100 mg BIDPRN PRN PO 06/19/24 17:15 Enoxaparin Sodium 40 mg DAILY SC 06/20/24 10:00 06/22/24 14:14 40 MG Acetaminophen 650 mg Q6HP PRN PO 06/19/24 17:15 Methylprednisolone Sodium Succinate 60 mg Q8HR IV 06/19/24 22:00 06/22/24 14:15 60 MG Pantoprazole Sodium 40 mg DAILY@0600 PO 06/20/24 06:00 06/22/24 05:05 40 MG Albuterol 2.5 mg Q4HWA NEB 06/19/24 18:00 06/22/24 13:59 2.5 MG Ipratropium [place] 0.5 mg Q4HWA NEB 06/19/24 18:00 06/22/24 13:59 0.5 MG Budesonide 0.5 mg BID NEB 06/19/24 22:00 06/22/24 06:33 0.5 MG Guaifenesin 200 mg Q4HP PRN PO 06/21/24 16:15 06/22/24 14:21 200 MG Laboratory Results Laboratory Tests 06/19/24 12:47 Assessment/Plan Assessment/Plan 68-year-old male with a known history of chronic asthma initially presented to the hospital with the increasing shortness a breath and wheezing found to have 1. Acute asthma exacerbation 2. Chronic asthma -, med nebs, budesonide, IV Solu-Medrol, O2 supplementation if needed. Plan discussed with: Patient Date of Service: Jun 22, 2024 Billing Provider: LAUREL STEPHENS MD Common Visit Codes: NOT BILLABLE LAUREL STEPHENS MD Jun 22, 2024 19:27
[2024-06-23] VITALS (12 sets, daily range): BP systolic 136–147; BP diastolic 84–92; PULSE 89–107; RESP 16–19; TEMP 36.5; O2SAT 92–98
[2024-06-23] MEDS ORDERED: ALBU1NEB5 IN (13:37)
[2024-06-23] MEDS ORDERED: FLUT100M IN (13:37)
[2024-06-23] MEDS ORDERED: METH4PAK PO (13:37)
[2024-06-23] MEDS ORDERED: IPRA0.03 (13:37)
--- NOTE | 2024-06-23 13:47 | DVHDS2 ---
Discharge Summary Date of Admission Jun 19, 2024 at 17:08 Date of Discharge: Jun 23, 2024 Labs/Diagnostic Data: Laboratory Results Test 06/19/24 13:50 06/19/24 12:47 Troponin I High Sensitivity < 3 ng/L (</=54) White Blood Count 6.5 10^3/uL (4.4-10.8) Red Blood Count 4.55 10^6/uL (4.5-5.90) Hemoglobin 13.3 g/dL (13.5-17.5) Hematocrit 38.4 % (41.0-53.0) Mean Corpuscular Volume 84.5 fL (80.0-100.0) Mean Corpuscular Hemoglobin 29.1 pg (28.0-32.0) Mean Corpuscular Hemoglobin Concent 34.5 g/dL (32.0-36.0) Red Cell Distribution Width 14.6 % (11.8-14.3) Platelet Count 347 10^3/uL (140-450) Mean Platelet Volume 8.5 fL (6.9-10.8) Neutrophils (%) (Auto) % (37.0-80.0) Lymphocytes (%) (Auto) % (10.0-50.0) Monocytes (%) (Auto) % (0.0-12.0) Basophils (%) (Auto) % (0.0-2.0) Neutrophils # (Auto) 10 ^3/uL (1.6-8.6) Lymphocytes # (Auto) 10 ^3/uL (0.4-5.4) Monocytes # (Auto) 10 ^3/uL (0-1.3) Differential Total Cells Counted 100.0 (100) Neutrophils % (Manual) 54 (37.0-80.0) Band Neutrophils % (Manual) 2 Lymphocytes % (Manual) 21 (10.0-50.0) Monocytes % (Manual) 4 (0-12) Eosinophils % (Manual) 19 (0-7) Basophils % (Manual) 0 (0.0-2.0) Metamyelocytes % (manual) 0 Myelocytes % (Manual) 0 Promyelocytes % (Manual) 0 Blast Cells % (Manual) 0 Reactive Lymphocytes 0 Platelet Estimate Adequate Sodium Level 142 mmol/L (136-145) Potassium Level 4.7 mmol/L (3.5-5.1) Chloride Level 108 mmol/L (98-107) Carbon Dioxide Level 27 mmol/L (20-31) Anion Gap 7 (5-15) Blood Urea Nitrogen 9 mg/dL (9-23) Creatinine 1.05 mg/dL (0.700-1.30) Glomerular Filtration Rate Calc 78 mL/min (>90) BUN/Creatinine Ratio 8.6 (10.0-20.0) Serum Glucose 98 mg/dL (74-106) Calcium Level 10.2 mg/dL (8.7-10.4) B-Type Natriuretic Peptide 2.94 pg/mL (0-100) Other Laboratory Tests 06/19/24 12:47 Brief Hx & Hospital Course: 68-year-old male with a known history of chronic asthma initially presented to the hospital with the increasing shortness a breath and wheezing found to have acute on chronic asthma exacerbation. Patient was eventually admitted, started on IV Solu-Medrol med nebs O2 supplementation. Patient is currently saturating more than 92% on room air. Patient was being discharged under stable condition. Patient will be given Medrol Dosepak. Condition at Discharge: Stable Final Diagnosis/Problems List 1. Acute asthma exacerbation 2. Chronic asthma Discharge Disposition: Home SNF Discharge Will this Physician continue t: No Discharge Instruct/Medications Diet: Cardiac 2g Na,low cholest Activity: No Restrictions, As Tolerated Follow Up/Referral: Follow up with the PCP in 1-2 weeks Medications: As reconciled and prescribed Discharge Statement: "Patient was advised to return to the ER or call 911 if any headaches, dizziness, shortness of breath, chest pain, abdominal pain, bleeding, fevers, or worsening of medical condition. Patient was counseled about treatment plan, medications, possible side effects, patientverbalized understanding. All questions were answered to the best of my ability. This discharge took greater then 30 minutes in planning, reviewing documentation, counseling the patient, and discussing with other team members." ASSESSMENT ASSESSMENT Assessment 68-year-old male with a known history of chronic asthma initially presented to the hospital with the increasing shortness a breath and wheezing found to have 1. Acute asthma exacerbation 2. Chronic asthma Date of Service: Jun 23, 2024 Billing Provider: LAUREL STEPHENS MD Common Visit Codes: NOT BILLABLE LAUREL STEPHENS MD Jun 23, 2024 13:47
== END 2024-06-23 16:16 | disposition home or self-care (01) | DRG 203 ==
LOC: ER 12:06 → OVERFLOW 17:08 → WEST WING 18:48
PROVIDERS: ADMIT Internal Medicine; ATTEND Internal Medicine
DX: J45.901 Unspecified asthma with (acute) exacerbation (principal); Z79.899 Other long term (current) drug therapy
CPT/HCPCS: 36415; 71045; 80048; 83880; 84484; 85007; 85027; 93005; 94640; 96374; G0378